=== PATIENT | female | born 1960 ===

== ENCOUNTER 2018-06-01 18:42 | Emergency (ER) | payer OTHER ==
[~2018-06-01] VITALS: Ht 170.2 cm; Wt 77.1 kg
[~2018-06-01 18:42] MED LIST: NABUMETONE750 MG
[2018-06-01] MEDS ORDERED: CLONAZEPAM1 MG (19:47)
[2018-06-01] MEDS ORDERED: CRESTOR10 MG (19:48)
[2018-06-01] MEDS ORDERED: MEDROLPACK PO (20:36)
[2018-06-01] MEDS ORDERED: NEURONTIN300 MG PO (20:36)
== END 2018-06-01 22:26 | disposition home or self-care (01) ==
LOC: ER 18:42
DX: M54.89 Other dorsalgia (principal)

== ENCOUNTER 2021-10-10 15:16 | Emergency (ER) | payer OTHER ==
[~2021-10-10] VITALS: Ht 167.6 cm; Wt 81.6 kg
[~2021-10-10 15:16] MED LIST changes: +CLONAZEPAM1 MG; +CRESTOR10 MG; +MEDROLPACK PO; +NEURONTIN300 MG PO
[2021-10-10] MEDS ORDERED: ZOLOFT20 MG/1 ML PO (15:23)
== END 2021-10-10 18:36 | disposition home or self-care (01) ==
LOC: ER 15:16
DX: M79.671 Pain in right foot (principal)